=== PATIENT | male | born 1990 | race Caucasian/White ===

== ENCOUNTER 2024-08-19 23:03 | Emergency (ER) | payer MEDICAID ==
[~2024-08-19] VITALS: Ht 165.1 cm; Wt 91.0 kg
[2024-08-19 23:05] VITALS: O2SAT 99
[2024-08-19] MEDS ORDERED: HYDROCODONE/ACETAMINOPHEN 5/325MG TABLET PO ONE (23:15)
[2024-08-19] MEDS ORDERED: CYCLOBENZAPRINE 10MG TABLET PO ONE (23:15)
[2024-08-19] MEDS: HYDROCODONE/ACETAMINOPHEN 5/325MG TABLET PO NR (23:55)
[2024-08-19] MEDS: CYCLOBENZAPRINE 10MG TABLET PO NR (23:55)
[2024-08-20] MEDS: LIDOCAINE 5% PATCH TOP SCH (00:10)
[2024-08-20] MEDS ORDERED: NAPR-1176 MT (00:30)
[2024-08-20] MEDS ORDERED: LIDO700A15 TP (00:30)
[2024-08-20 01:14] VITALS: BP 157/78; PULSE 60; RESP 18; TEMP 37.11408; O2SAT 99
== END 2024-08-20 01:15 | disposition home or self-care (01) ==
LOC: ER 23:13
DX: M54.50 Low back pain, unspecified (principal); Z90.49 Acquired absence of other specified parts of digestive tract
CPT/HCPCS: 99284

== ENCOUNTER 2024-08-26 11:33 | Emergency (ER) | payer MEDICAID ==
[~2024-08-26] VITALS: Ht 177.8 cm; Wt 123.0 kg
[~2024-08-26 11:33] MED LIST: LIDO700A15 TP; NAPR-1176 MT
[2024-08-26 11:44] VITALS: O2SAT 100
[2024-08-26 11:57] VITALS: BP 131/92; PULSE 60; RESP 16; TEMP 98.3; O2SAT 98
== END 2024-08-26 15:28 | disposition home or self-care (01) ==
LOC: ER 11:47
DX: M54.50 Low back pain, unspecified (principal); Z90.49 Acquired absence of other specified parts of digestive tract
CPT/HCPCS: 99281; Z7610